=== PATIENT | female | born 1965 | race African-American/Black ===

== ENCOUNTER 2020-11-11 04:00 | Emergency (ER) | payer SELFPAY ==
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
== END 2020-11-11 04:08 | disposition left against medical advice (07) ==
LOC: ER 04:02
DX: Z53.21 Procedure and treatment not carried out due to patient leaving prior to being seen by health care provider (principal)

== ENCOUNTER 2021-08-12 17:29 | Emergency (ER) | payer MEDICARE, OTHER ==
[~2021-08-12] VITALS: Ht 160 cm; Wt 56.7 kg
[2021-08-12 17:46] VITALS: BP 139/73
--- NOTE | 2021-08-12 19:55 | NUR ---
Patient eloped from facility. ER MD notified.
== END 2021-08-12 20:00 | disposition left against medical advice (07) ==
LOC: ER 17:49
DX: Z02.89 Encounter for other administrative examinations (principal)

== ENCOUNTER 2021-08-13 01:24 | Emergency (ER) | payer MEDICARE, OTHER ==
[~2021-08-13] VITALS: Ht 154.9 cm; Wt 46.3 kg
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
--- NOTE | 2021-08-13 01:59 | NUR ---
PT BEING TAKEN TO CT
[2021-08-13 06:26] VITALS: BP 150/61
--- NOTE | 2021-08-13 06:26 | NUR ---
Patient discharged to home in stable condition. Written and verbal after care instructions given. Patient verbalizes understanding of instruction.
== END 2021-08-13 06:27 | disposition home or self-care (01) ==
LOC: ER 01:25
DX: S00.12XA Contusion of left eyelid and periocular area, initial encounter (principal); S00.83XA Contusion of other part of head, initial encounter; Z60.2 Problems related to living alone; Y04.2XXA Assault by strike against or bumped into by another person, initial encounter; Y93.89 Activity, other specified; Y92.89 Other specified places as the place of occurrence of the external cause; Y99.8 Other external cause status
CPT/HCPCS: 70450; 70486; 72125; 99285; L0172

== ENCOUNTER 2021-08-13 09:36 | Emergency (ER) | payer MEDICARE, OTHER ==
[~2021-08-13] VITALS: Ht 160 cm; Wt 54.0 kg
[2021-08-13 09:44] VITALS: BP 124/82
--- NOTE | 2021-08-13 10:34 | NUR ---
Pt. is refusing to answer questions.
--- NOTE | 2021-08-13 10:53 | NUR ---
Pt. is refusing to speak. SW provided pt. with resources.
--- NOTE | 2021-08-13 11:31 | NUR ---
Patient discharged to home in stable condition. Written and verbal after care instructions given. Patient verbalizes understanding of instruction.
== END 2021-08-13 11:31 | disposition home or self-care (01) ==
LOC: ER 09:38
DX: S00.83XA Contusion of other part of head, initial encounter (principal); Z60.2 Problems related to living alone; Y08.89XA Assault by other specified means, initial encounter; Y93.89 Activity, other specified; Y92.89 Other specified places as the place of occurrence of the external cause; Y99.8 Other external cause status